=== PATIENT | female | born 1980 | race Caucasian/White ===

== ENCOUNTER 2016-06-11 20:18 | Emergency (ER) | payer OTHER | END 2016-06-11 21:31 | disposition home or self-care (01) | LOC: FER 20:18 | DX: R23.8 Other skin changes (principal); T50.Z95A Adverse effect of other vaccines and biological substances, initial encounter; Z88.5 Allergy status to narcotic agent ==

== ENCOUNTER 2016-06-15 10:42 | Emergency (ER) | payer OTHER | END 2016-06-15 13:33 | disposition home or self-care (01) | LOC: FER 10:42 | DX: L03.114 Cellulitis of left upper limb (principal); M06.9 Rheumatoid arthritis, unspecified; Z88.8 Allergy status to other drugs, medicaments and biological substances; Z79.899 Other long term (current) drug therapy | CPT/HCPCS: 99283 ==